=== PATIENT | male | born 1970 | race Caucasian/White ===

== ENCOUNTER 2017-02-07 11:21 | Emergency (ER) | payer OTHER ==
[~2017-02-07] VITALS: Ht 177.8 cm; Wt 158.8 kg
[~2017-02-07 11:21] MED LIST: FABB TABLET1 EACH PO; LISINOPRIL-HCT1 EAC2 PO; PERCOCET 325 MG1 TA2 PO; VIGAMOX 0.60 GTT/1 B IO
--- NOTE | 2017-02-07 12:40 | RADIOLOGY REPORT ---
EXAMINATION: XR FINGER, LEFT CLINICAL INFORMATION: Injury to the left fourth digit. Pain, ecchymosis, and swelling. COMPARISON: None TECHNIQUE: Three views of the left left fifth finger.. FINDINGS: There is focal soft tissue swelling involving the tip of the left fifth finger. There is a minimally displaced, comminuted fracture involving the tuft of the distal phalanx. The other bones and joints of the fifth digit are intact. No radiopaque foreign body is identified. IMPRESSION: Acute, minimally displaced comminuted fracture involving the tuft of the left fifth finger.
--- NOTE | 2017-02-07 12:48 | ED HAND/WRIST INJURY COMPLAINT ---
History of Present Illness General Chief Complaint: Hand or Wrist Injury Stated Complaint: LEFT HAND PINKY BRUISED/BROKEN? Source: patient Exam Limitations: no limitations Vital Signs & Intake/Output Vital Signs & Intake/Output Vital Signs Date Time Temp Pulse Resp B/P B/P Pulse O2 O2 Flow FiO2 Mean Ox Delivery Rate 02/07 1302 98.5 80 18 148/89 98 Room Air Room Air 02/07 1126 98.7 81 14 154/95 Room Air Allergies Coded Allergies: poison austyn extract (Severe, RASH 02/07/17) poison oak extract (Severe, RASH 02/07/17) Reconcile Medications Cyanocobalamin/FA/Pyridoxine (Fabb Tablet) 1 MG-2.2 MG-25 MG TABLET 1 TAB PO DAILY SUPPLEMENT (Reported) Lisinopril/Hydrochlorothiazide (Lisinopril-Hctz 10-12.5 MG Tab) 10 MG-12.5 MG TABLET 1 TAB PO DAILY HEART (Reported) Triage Note: 46 Y/O MALE C/O PAIN AND BRUISING TO L 5TH FINGER; CRUSHED WITH WRENCH AT WORK YESTERDAY AND THEN HIT AGAIN THIS AM. PURPLE BRUISING TO TIP OF FINGER AND UNDER NAIL. BRUSING DOWN LENGTH OF FINGER. NO OPEN AREAS. DECLINES MEDS. WORKMANS COMP COMPLETED Triage Nurses Notes Reviewed? yes Occurred: yesterday Duration: hour(s): Timing: recent history Injury Environment: work Severity: moderate Pain/Injury Location: Left: 5th finger. Context: crush Modifying Factors: Worsens With: cold therapy. HPI: 46YO male presents to ED c/o left pinky finger pain. Patient states that while at work yesterday he dropped a wrench on his left pinky finger crushing the tip of his finger. He felt moderate pain at this time. This morning he noticed swelling and bruising over his left pinky. Today he bumped his finger and felt severe pain and decided to come in. He denies any break in the skin or bleeding. He applied ice to the area last night which intensified pain. He took ibuprofen last night which helped his pain. Pain is worse with movement and direct pressure. (MARU HU) Past History Travel History Traveled to [place] past 21 day No Medical History Any Pertinent Medical History? see below for history Neurological: NONE EENT: NONE Cardiovascular: hypertension Respiratory: NONE Gastrointestinal: NONE Hepatic: NONE Renal: NONE Musculoskeletal: NONE Psychiatric: NONE Endocrine: NONE Blood Disorders: NONE Cancer(s): NONE SR SOLUTIONS CONSULTANT/Reproductive: NONE Tetanus Status: up to date Surgical History Surgical History: non-contributory Psychosocial History What is your primary language Botswanan Tobacco Use: Never used Family History Hx Contributory? No (MARU HU) Review of Systems Review of Systems Constitutional: Reports: no symptoms. EENTM: Reports: no symptoms. Respiratory: Reports: no symptoms. Cardiovascular: Reports: no symptoms. GI: Reports: no symptoms. Genitourinary: Reports: no symptoms. Musculoskeletal: Reports: see HPI. Skin: Reports: see HPI. Neurological/Psychological: Reports: no symptoms. Hematologic/Endocrine: Reports: no symptoms. Immunologic/Allergic: Reports: no symptoms. All Other Systems: Reviewed and Negative (MARU HU) Physical Exam Physical Exam General Appearance: well developed/nourished, no apparent distress, alert, awake Head: atraumatic, normal appearance Eyes: Bilateral: normal appearance, EOMI. Ears, Nose, Throat: hearing grossly normal Neck: normal inspection, supple Cardiovascular/Respiratory: no respiratory distress Back: normal inspection, normal range of motion Hand Left: normal range of motion, ecchymosis and swelling over left 5th digit, partial subungual hematoma on lateral nail bed, tenderness to palpation over distal phalanx, full ROM Hand Right: normal inspection, normal range of motion Skin: ecchymosis, ecchymosis and swelling over left fifth finger, subungual hematoma at lateral nail of left fifth finger (MARU HU) Progress Differential Diagnosis: abscess, cellulitis, contusion, dislocation, felon, fracture, paronychia, sprain, tenosynovitis Plan of Care: Patient is sitting comfortably in chair, he is in no acute distress. He states mild pain in his left fifth finger, he is not requesting pain medication at this time. Xray reveals Acute, minimally displaced comminuted fracture involving the tuft of the left fifth finger. Finger was placed in finger splint and wrapped for immobilization. Xray findings were discussed with patient and he was given ortho referral. The patient was neurologically intact and had full range of motion of all his digits. He will return with any worsening symptoms or concerns. Diagnostic Imaging: Viewed by Me: Radiology Read. Discussed w/RAD: Radiology Read. Radiology Impression: PATIENT: RONN CALLES IV PRESENT AGE: 46 PATIENT ACCOUNT NO: [id number] : 66 LOCATION: [facility] ORDERING PHYSICIAN: MARU BELL SERVICE DATE: 02/07/170676 EXAM TYPE : RAD - XRY-FINGERS, LEFT EXAMINATION: XR FINGER, LEFT CLINICAL INFORMATION: Injury to the left fourth digit. Pain, ecchymosis, and swelling. COMPARISON: None TECHNIQUE: Three views of the left left fifth finger.. FINDINGS: There is focal soft tissue swelling involving the tip of the left fifth finger. There is a minimally displaced, comminuted fracture involving the tuft of the distal phalanx. The other bones and joints of the fifth digit are intact. No radiopaque foreign body is identified. IMPRESSION: Acute, minimally displaced comminuted fracture involving the tuft of the left fifth finger. DICTATED BY: RONN TUCKER MD DATE/TIME DICTATED:02/07/171234 INDOOR PLANT TECHNICIAN:JULIA DATE/TIME TRANSCRIBED:02/07/171234 CONFIDENTIAL, DO NOT COPY WITHOUT APPROPRIATE AUTHORIZATION. <Electronically signed in Other Vendor System> SIGNED BY: RONN TUCKER MD 02/07/17 1240 Comments: Note was written by Dianne Holm PA-C with direct supervion by me. (JYOTHI BELL,MARU) Departure Departure Disposition: HOME OR SELF CARE Condition: Stable Clinical Impression Primary Impression: Fracture of finger, distal phalanx, left, closed Referrals: SAMARA EDWARDS,REGINO DENISE MD,SAKINA Dawson (PCP/Family) Additional Instructions: Follow up with ortho, Dr. Rubi, call to make an appointment this week. Take Ibuprofen as prescribed as needed for pain. Keep finger in splint until your appointment with orthopedics. Return with any worsening symptoms or concerns. Please go over all results of today's visit with your primary care doctor. Contact your primary care doctor to let them know you were here in the emergency room. There may be nonspecific findings which may not be related to your visit today here in the emergency room but may require further evaluation and chronic monitoring by your primary care doctor. If you had a laceration today the chance of foreign body always remains. You should follow-up with your primary care doctor for recheck in 3-5 days for a wound check. If you had an x-ray done there is a chance that a fracture could have been missed on initial read and you should follow-up with your primary care doctor for repeat x-rays if symptoms persist. If your blood pressure was elevated here in the emergency room please have rechecked by her primary care doctor within the next 48 hours by your primary care doctor. If you were prescribed a narcotic here in the emergency room or any type of controlled substances you're not allowed to drive while taking this medication or operate any type of heavy machinery. Narcotics can make you feel lightheaded dizziness nausea and can cause constipation. 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 Thank you for choosing [facility] emergency room. Please return to the emergency room immediately if you have any other concerns worsening of symptoms. Departure Forms: Customer Survey Employee Industrial Accident General Discharge Information (MARU HU) PA/GEOINT ANALYST Co-Sign Statement Statement: ED Attending supervision documentation- [] I saw and evaluated the patient. I have also reviewed all the pertinent lab results and diagnostic results. I agree with the findings and the plan of care as documented in the PA's/GEOINT ANALYST's documentation. [X] I have reviewed the ED Record and agree with the PA's/GEOINT ANALYST's documentation. [] Additions or exceptions (if any) to the PAs/GEOINT ANALYST's note and plan are summarized below: [] (AARON EDWARDS,HARSHIL) Procedures Splinting Location: left fifth finger Pre-Made Type: metal (finger splint) Splint Applied By: splint applied by me Pre-Proc Neuro Vasc Exam: normal Post-Proc Neuro Vasc Exam: normal (MARU HU)
[2017-02-07 13:02] VITALS: BP 148/89
== END 2017-02-07 13:08 ==
LOC: ERH 11:21
DX: S62.637A Displaced fracture of distal phalanx of left little finger, initial encounter for closed fracture (principal); W23.0XXA Caught, crushed, jammed, or pinched between moving objects, initial encounter; Y93.9 Activity, unspecified; Y92.9 Unspecified place or not applicable
CPT/HCPCS: 73140-LT